=== PATIENT | female | born 1975 | race Caucasian/White ===

== ENCOUNTER → 2019-11-16 | Outpatient (CLI) | payer OTHER ==
--- NOTE | 2019-11-21 13:16 | SLEEPCENT ---
DATE OF STUDY: 11/16/2019 ORDERED BY: Donal Lincoln Nocturnal polysomnography was performed for evaluation of sleep physiology in this patient with a history of excessive somnolence and morning headaches. 7 hours and 55 minutes of data were reviewed. There were 403 minutes of sleep identified. Sleep latency was normal at 13.5 minutes. REM latency was normal at 81 minutes. Sleep architecture was good with 5 REM cycles. Overall sleep efficiency was 86.7%. The patient's electrocardiogram showed a sinus rhythm with an average heart rate of 66 beats per minute. Electroencephalogram (EEG) showed normal waveforms for awake and sleep stages. There were no focal events identified. There were only five respiratory events identified of 10 seconds in duration or greater for an apnea-hypopnea index of 0.7, well within normal limits. The events that were seen were in the supine posture. Snoring was noted. Arousals from respiratory events occurred only 0.6 times per hour. There were no oxygen desaturations below 92%. There was some minor activity in the limb leads. Limb movement arousal index was 3.6. IMPRESSION: Normal nocturnal polysomnography with snoring.
== END ==
LOC: M SLEEP 20:00
PROVIDERS: ATTEND Physician Assistant
DX: R06.83 Snoring (principal)

== ENCOUNTER → 2020-05-12 | Outpatient (CLI) | payer OTHER ==
--- NOTE | 2020-05-14 09:18 | ECHO ---
DATE OF PROCEDURE: 05/12/2020 Age: 44 Gender: Female Height: 165 cm Weight: 79.4 kg REFERRING PHYSICIAN: Cullen Nguyễn M.D. INDICATION: Venous insufficiency. MEASUREMENTS: 2D Measurements: Intraventricular septum 0.90 cm Posterior wall 0.74 cm Left ventricle diastole 5.0 cm Left atrium 3.3 cm Aortic root 2.6 cm Proximal ascending aorta 2.8 cm Inferior vena cava 1.3 cm (more than 50% respiratory variation) Doppler Measurements: No aortic regurgitation No aortic stenosis Trace mitral regurgitation No mitral stenosis No tricuspid regurgitation No pulmonic regurgitation Aortic valve velocity 145 cm/s LVOT velocity 110 cm/s Mitral E velocity 78.0 cm/s Mitral A velocity 61.7 cm/s Mitral deceleration time 155 msec Pulmonary artery acceleration time 158 msec MITRAL ANNULAR TISSUE DOPPLER E prime septal 9.3 cm/s, E prime lateral 9.9 cm/s DESCRIPTION: Rhythm was sinus. This was a moderately technically difficult echocardiogram. No pericardial effusion. This was a 2D, M-mode, color flow Doppler, and pulsed wave Doppler examination including mitral annular tissue Doppler. CONCLUSIONS: 1. Normal echocardiogram Doppler. 2. Normal left ventricle internal dimensions and wall thickness. Normal regional left ventricular (LV) wall motion and wall thickening. Normal left ventricular (LV) systolic function. Left ventricular ejection fraction (LVEF) 70% by visual estimate. Normal left ventricular (LV) diastolic function. 3. Normal inferior vena cava size and respiratory variation. Suggestive of normal central venous pressure (5-10 mmHg). MTDD
== END ==
LOC: M CARPUL 10:14
PROVIDERS: ATTEND Internal Medicine
DX: I87.2 Venous insufficiency (chronic) (peripheral) (principal); I10 Essential (primary) hypertension